=== PATIENT | female | born 1950 | race Caucasian/White ===

== ENCOUNTER → 2017-01-04 | Outpatient (CLI) | payer OTHER | END | disposition home or self-care (01) | LOC: GMAL 14:39 | PROVIDERS: ATTEND Family Medicine | DX: R10.32 Left lower quadrant pain (principal) ==

== ENCOUNTER → 2017-01-10 | Outpatient (CLI) | payer OTHER ==
--- NOTE | 2017-01-10 12:40 | US ---
EXAM DESCRIPTION: Abdomen,Limited CLINICAL HISTORY: LEFT LOWER QUAD PAIN COMPARISON: None Available. TECHNIQUE: Transcutaneous scanning: Two-dimensional and Doppler modes. FINDINGS: Scanning of the left inguinal area shows no fluid collection or solid mass. With Valsalva maneuver, no bowel or soft tissue herniation is noted into the inguinal canal. Left kidney measures 11.5 x 5.8 x 6.7 cm. Normal mid renal cortical thickness. Normal cortical echogenicity. 6 mm echogenic object in the inferior collecting system. No hydronephrosis or perirenal fluid. Proximal ureter not visualized. IMPRESSION: 1. No left inguinal hernia. 2. 6 mm radiodense stone in the inferior collecting system of the left kidney. Otherwise unremarkable. Electronically signed by: Adal Brown MD 01/10/2017 12:39 PM CDT
== END ==
LOC: US 08:24
PROVIDERS: ATTEND Family Medicine
DX: R10.32 Left lower quadrant pain (principal); N20.0 Calculus of kidney

== ENCOUNTER 2017-01-20 12:16 | Emergency (ER) | payer OTHER ==
[2017-01-20 13:31] VITALS: TEMP 97.9
--- NOTE | 2017-01-20 13:49 | ED.PDOC ---
History of Present Illness - General Chief Complaint: Lower Extremity Injury Stated Complaint: left hip and left knee pain Time Seen by Provider: 01/20/17 13:11 Source: patient, RN notes reviewed, Vital Signs reviewed Exam Limitations: no limitations - History of Present Illness Initial Comments: Patient comes in with c/o L hip and knee pain. She reports last night she slipped on some water on the kitchen floor causing her to do the splits. She then had difficulty getting up due to continually slipping on the water. She denies any pain on her R side but is sure she broke her knee cap due to the pain. She can't bend her knee without pain. No numbness or tingling. Able to ambulate but with pain. Occurred: yesterday Pain - Lower Extremity: moderate: Left Thigh/Hip, severe: Left Knee Method of Injury: fell Improving Factors: rest Worsening Factors: movement Allergies/Adverse Reactions: Allergies Penicillins Allergy (Unverified 05/27/12 05:35) Home Medications: Ambulatory Orders Hydrochlorothiazide 25 mg PO DAILY 03/25/16 Metoprolol Tartrate 50 mg PO DAILY 03/25/16 Naproxen [Naprosyn] 500 mg PO BID 03/25/16 Cinnamon 500 mg PO DAILY 01/20/17 Potassium Gluconate 2 each PO DAILY 01/20/17 Review of Systems - Review of Systems Constitutional: States: no symptoms reported Respiratory: States: no symptoms reported Cardiology: States: no symptoms reported Gastrointestinal/Abdominal: States: no symptoms reported Musculoskeletal: States: see HPI, joint pain - L hip and knee, joint swelling - Left knee, muscle pain - L leg Skin: States: no symptoms reported Neurological: States: no symptoms reported. Denies: numbness, paresthesia, tingling, weakness All other Systems: No Change from Baseline Past Medical History (General) - Patient Medical History Hx Cardiac Disorders: Yes Hx Congestive Heart Failure: No Hx Hypertension: Yes Hx Diabetes: No Hx Gastroesophageal Reflux: Yes Hx Cancer: No Hx Hepatitis C: No Surgical History: cholecystectomy, tonsillectomy, Hysterectomy - Vaccination History Hx Tetanus, Diphtheria Vaccination: Yes Hx Influenza Vaccination: No Hx Pneumococcal Vaccination: Yes - Social History Hx Tobacco Use: Yes - quit 30 yrs ago Hx Alcohol Use: No Hx Substance Use: No Hx Substance Use Treatment: No Hx Depression: No Hx Physical Abuse: No Hx Emotional Abuse: No Hx Suspected Abuse: No - Female History Patient : No Family Medical History - Family History Mother Hx Family Hypertension: Yes Physical Exam - Physical Exam General Appearance: Alert, Comfortable, No apparent distress, Well Developed, Well Groomed, Well Hydrated, Well Nourished Cardiovascular/Respiratory: normal peripheral pulses, no respiratory distress Thigh/Hip: normal inspection, non-tender, no evidence of injury, limited ROM - due to pain, soft tissue tenderness - Lateral thigh Leg: normal inspection, non-tender, no evidence of injury Knee: bone tenderness - L knee cap, joint effusion - L knee, limited ROM - L knee - unable to flex due to swelling and pain, pain, soft tissue tenderness, swelling Ankle: normal inspection, non-tender, no evidence of injury, normal ROM Foot: normal inspection, non-tender, no evidence of injury, normal ROM Neuro/Tendon: normal sensation, normal motor functions, normal tendon functions , no evidence tendon injury Mental Status: alert, oriented x 3 Skin: normal color, warm/dry Comments: Vital Signs 01/20/17 13:28 Temperature 97.9 F Pulse Rate [ 67 Right Brachial] Respiratory 20 Rate Blood Pressure 113/70 [Right Arm] O2 Sat by Pulse 96 Oximetry Progress - EKG/XRAY/CT XRAY: L knee: no fracture or dislocation - No fracture or dislocation Departure - Departure Clinical Impression: Sprain of hip Qualifiers: Encounter type: initial encounter Laterality: left Qualified Code(s): S73.102A - Unspecified sprain of left hip, initial encounter Sprain of knee Qualifiers: Encounter type: initial encounter Involved ligament of knee: unspecified ligament Laterality: left Qualified Code(s): S83.92XA - Sprain of unspecified site of left knee, initial encounter Time of Disposition: 14:13 Disposition: Discharge to Home or Self Care Condition: Good Departure Forms: ED Discharge - Pt. Copy, Patient Portal Self Enrollment Instructions: DI for Knee Sprain, DI for Groin Strain Diet: resume usual diet Activity: increase activity as tolerated Referrals: Sanjeev Jackson III, MD [Primary Care Provider] - 1-2 Weeks Home Medications: Ambulatory Orders Hydrochlorothiazide 25 mg PO DAILY 03/25/16 Metoprolol Tartrate 50 mg PO DAILY 03/25/16 Naproxen [Naprosyn] 500 mg PO BID 03/25/16 Cinnamon 500 mg PO DAILY 01/20/17 Potassium Gluconate 2 each PO DAILY 01/20/17
--- NOTE | 2017-01-20 14:03 | RAD ---
Examination: XR HIP 2 OR MORE VIEWS dated 01/20/2017 1:12 PM CDT History: fell last night Comparison: None Technique: Two views of the left hip FINDINGS AND IMPRESSION: Suboptimal visualization secondary to body habitus. Mild degenerative changes of the left hip without acute fracture or dislocation. Electronically signed by: Emile Grullon MD 01/20/2017 2:02 PM CDT
--- NOTE | 2017-01-20 14:05 | RAD ---
Examination: XR KNEE 4 OR MORE VIEWS dated 01/20/2017 1:12 PM CDT History: fell last night Comparison: None Technique: Three views of the left knee FINDINGS AND IMPRESSION: Moderate/advanced degenerative changes of the left knee with a small joint effusion. No acute fracture or dislocation. Chondrocalcinosis noted of the lateral compartment. Electronically signed by: Emile Grullon MD 01/20/2017 2:03 PM CDT
[2017-01-20 14:23] VITALS: BP 113/59; O2SAT 95
== END 2017-01-20 14:23 | disposition home or self-care (01) ==
LOC: ER 12:16
DX: S73.102A Unspecified sprain of left hip, initial encounter (principal); S83.92XA Sprain of unspecified site of left knee, initial encounter; I10 Essential (primary) hypertension; K21.9 Gastro-esophageal reflux disease without esophagitis; Z87.891 Personal history of nicotine dependence; Z88.0 Allergy status to penicillin; Z79.899 Other long term (current) drug therapy; W01.0XXA Fall on same level from slipping, tripping and stumbling without subsequent striking against object, initial encounter; Y92.89 Other specified places as the place of occurrence of the external cause

== ENCOUNTER → 2017-12-14 | Outpatient (CLI) | payer OTHER ==
--- NOTE | 2017-12-15 10:46 | MRI ---
EXAM DESCRIPTION: Pelvis w/o Contrast: MRI. CLINICAL HISTORY: M25.552. Pain in left hip. COMPARISON: Left hip radiographs 01/20/2017. TECHNIQUE: Multiplanar, high-field MRI, multiple sequences, without contrast: Pelvis and left hip. FINDINGS: Narrowing of the left hip joint space with lack of fluid compared to the right hip. Patchy hyperintense T2 and inversion recovery sequence in the superior left femoral head more anterior than posterior. Focal cup-shaped lesion on the anterior superior articular surface demonstrating a double margin (bright inner band and dark outer band)f which is hypoechoic on T1 and T2 sequences with central hyperintense and dark T2 signal. 1.5 cm transverse measurement. The cup shaped lesion is heterogeneously dark on T1 sequence. Second, cup-shaped lesion, with double margin, superior subchondral bone of the femoral head with same signal features, 1.3 cm transverse measurement. Mixed hyperintense T2/STIR signal and decreased T1 signal between these lesions superior subchondral femoral head, no definite margin. Question of minimal collapse at the vertex, with hypointense T2, STIR, and T1 signal. Hyperintense T2 and FLAIR signal more laterally on the femoral head to the lesions described above. Minimal decreased T1 signal with no definite margin. Would be equivalent to Moon (osteonecrosis radiograph classification) stage III disease. Minimal subchondral edema-like hyperintense T2 and inversion recovery signal in the anterior and posterior and medial facets and columns of the acetabulum. Minimal fluid is noted around the subcapital femoral neck in the inferior capsule. Normal marrow signal in the remaining included pelvic bones, and the right acetabulum, right femoral head and neck. Edema in the distal right gluteus muscles and tendons inserted on the right greater trochanter. IMPRESSION: 1. Osteonecrosis of the left femoral head with 2 focal lesions in the anterior mid sagittal subchondral bone and the superior mid sagittal subchondral bone. These focal lesions are surrounded by heterogeneous marrow edema involving most of the superior aspect of the femoral head and extending laterally. Cannot exclude a subchondral fracture. Small focal areas of fibrosis and suspected collapse near the vertex and lateral femoral head. Joint space loss. Would be equivalent to Moon (osteonecrosis radiographic classification) stage III disease. No marrow edema in the inferior left femoral head and femoral neck. Consider correlation with plain radiographs which are more sensitive to detect cortical collapse. 2. Strain of the distal right gluteus muscles and tendons at the insertion on the right greater trochanter. Electronically signed by: Adal Brown MD 12/15/2017 10:44 AM CDT
== END ==
LOC: MRI 10:45
PROVIDERS: ATTEND Nurse Practitioner Family
DX: M87.852 Other osteonecrosis, left femur (principal); S39.012A Strain of muscle, fascia and tendon of lower back, initial encounter; M25.552 Pain in left hip

== ENCOUNTER → 2017-12-24 | Outpatient (CLI) | payer OTHER | LOC: RESP 11:11 | PROVIDERS: ATTEND Orthopaedic Surgery | DX: Z01.818 Encounter for other preprocedural examination (principal) ==

== ENCOUNTER → 2018-01-08 | Outpatient (CLI) | payer OTHER | LOC: GMAL 10:37 | PROVIDERS: ATTEND Family Medicine | DX: R30.0 Dysuria (principal) ==

== ENCOUNTER → 2018-01-21 | Outpatient (CLI) | payer OTHER, MEDICARE ==
--- NOTE | 2018-01-22 07:44 | RAD ---
EXAM DESCRIPTION: Pelvis CLINICAL HISTORY: 67 years Female, AVASCULAR NECROSIS OF BONE OF HIP-LEFT COMPARISON: MRI December 14, 2017 , left hip radiograph January 20, 2017. FINDINGS: There is severe left and joint space narrowing with [id number] alignment. Subcortical sclerosis involves the left femoral head and acetabular roof. There is subtle flattening of the left femoral head contour superiorly consistent with provided history of avascular necrosis as seen on recent MRI. The right hip joint is relatively well maintained. Mild to moderate degenerative changes are noted at several levels in the lower lumbar spine including disc space narrowing and marginal osteophyte formation. No acute abnormality. IMPRESSION: Advanced degenerative changes in the left hip including severe joint space narrowing with [id number] alignment. AVN in the left femoral head better demonstrated on recent MRI results in subtle flattening of the left femoral head contour on today's exam. Left hip joint space narrowing today's exam is worse from January 20, 2017. Degenerative changes in lumbar spine. Electronically signed by: Aaron Marin MD 01/22/2018 7:42 AM CDT
== END ==
LOC: RAD 09:19
PROVIDERS: ATTEND Orthopaedic Surgery
DX: M87.852 Other osteonecrosis, left femur (principal)

== ENCOUNTER 2018-01-23 05:50 | Inpatient (IN) | payer OTHER, MEDICARE ==
--- NOTE | 2018-01-21 14:07 | HP ---
CHIEF COMPLAINT: Left hip pain. HISTORY OF PRESENT ILLNESS: Megan is a 67-year-old female with a history of pain in the left hip. She has had this pain going on and getting progressively worse for a very long time. She denies any history of trauma related to this, denies any radiation of pain, and denies any neurologic symptoms. Because of her failure of conservative measures and management of this pain, she has requested operative intervention. After discussing the risks, benefits and alternatives to total hip arthroplasty, she has given informed consent. PAST SURGICAL HISTORY: 1. Total knee arthroplasty. 2. Cholecystectomy. MEDICATIONS: 1. Metoprolol. 2. Hydrochlorothiazide. 3. Naprosyn. 4. Clonidine. 5. Lovastatin. ALLERGIES: PENICILLIN. CODE STATUS: Full code. IMMUNIZATIONS: Up to date. FAMILY HISTORY: None pertinent to today's complaint. SOCIAL HISTORY: The patient does not drink, smoke or use any illicit drugs. REVIEW OF SYSTEMS: Negative except as indicated in the History of Present Illness. PHYSICAL EXAMINATION: VITAL SIGNS: Blood pressure 162/98. Pulse 52. Height 5'2". Weight 218. MENTAL STATUS: The patient is awake, alert, and is able to give a good history and participate in the physical. The patient is oriented to person, place and time. SKIN: Normal tone and turgor. HEENT: Normocephalic, atraumatic. Pupils equal, round and reactive. Mucosal membranes are moist. NECK: Normal range of motion. No thyromegaly, no lymphadenopathy. CHEST: Normal respiratory excursion. CARDIAC: Regular rate and rhythm. No murmurs, rubs or gallops. MUSCULOSKELETAL: The bilateral upper extremities show full active range of motion without significant pain. She has intact sensation and they are warm and well perfused. There is no deformity. Strength is 5/5. The right lower extremity shows full range of motion of the hip. She has no pain with hip range of motion. She has intact sensation. It is warm and well perfused. She has greater than 100 degrees of flexion and internal rotation to about 30 degrees. External rotation is to 50 degrees. She has no pain with range of motion of the knee. She has a well-healed scar on the tibia from previous total knee replacement. The right hip shows severe pain with range of motion. She has 0 degrees of internal rotation and obligate external rotation. External rotation is limited to 20 degrees. Sensation is intact. It is warm and well perfused. She walks with an antalgic gait. IMAGING: The x-rays and MRI shows severe avascular necrosis with degenerative hip arthritis. ASSESSMENT: 1. Avascular necrosis. 2. Hip arthritis. PLAN: The plan at this point is for total hip arthroplasty. We have discussed the risks, benefits, and alternatives to that and the patient has given informed consent. #[id number] [facility]
[2018-01-23] MEDS ORDERED: LACTATED RINGERS 1,000 ML ONE (05:52)
[2018-01-23] MEDS ORDERED: SODIUM CHLORIDE 0.9% 250ML 250 ML ONE ×3 (05:53→19:45)
[2018-01-23] MEDS ORDERED: SODIUM CHLORIDE 0.9% 100ML 100 ML IVPB ONE (05:53)
[2018-01-23] MEDS ORDERED: TRANEXAMIC ACID 1,000 MG/10 ML VIAL ONE ×2 (05:53→05:54)
[2018-01-23] MEDS ORDERED: VANCOMYCIN HCL INJ 1,000 MG VIAL IVPB ONE ×3 (05:53→19:46)
[2018-01-23] MEDS ORDERED: ceFAZolin SODIUM 1 GM VIAL ONE (06:21)
[2018-01-23] MEDS ORDERED: MIDAZOLAM INJ 2 MG/2 ML VIAL ONE (06:32)
[2018-01-23] MEDS ORDERED: fentaNYL CITRATE INJ 50 MCG/ML AMP ONE (06:32)
[2018-01-23] MEDS ORDERED: ACETAMINOPHEN IV 1000MG 100 ML ONE (06:32)
[2018-01-23] MEDS ORDERED: MORPHINE SULF *EPIDURAL* 1 MG/ML VIAL ONE (06:32)
[2018-01-23] MEDS ORDERED: ROCURONIUM BROMIDE 10 MG/ML VIAL ONE (06:33)
[2018-01-23] MEDS ORDERED: traMADol HCL 50 MG TAB PO PRN (07:13)
[2018-01-23] MEDS ORDERED: ACETAMINOPHEN 500 MG TAB PO PRN (07:13)
[2018-01-23] MEDS ORDERED: ONDANSETRON INJ 4 MG/2 ML VIAL IV PRN (07:13)
[2018-01-23] MEDS ORDERED: PROMETHAZINE HCL INJ 12.5 MG in SODIUM CHLORIDE 0.9% 50ML 50 ML IVPB PRN (07:13)
[2018-01-23] MEDS ORDERED: CYCLOBENZAPRINE HCL 10 MG TAB PO PRN (07:13)
[2018-01-23] MEDS ORDERED: MORPHINE SULFATE INJ 10 MG/ML VIAL IM PRN (07:13)
[2018-01-23] MEDS ORDERED: DEX 5% W/NACL 0.45% 1000ML 1,000 ML IVS PRN (07:13)
[2018-01-23] MEDS ORDERED: PROMETHAZINE HCL INJ 25 MG in SODIUM CHLORIDE 0.9% 50ML 50 ML IVPB PRN (07:13)
[2018-01-23] MEDS ORDERED: TEMAZEPAM 15 MG CAP PO PRN (07:13)
[2018-01-23] MEDS ORDERED: SODIUM CHLORIDE 0.9% (FLUSH) 10 ML SYG IV PRN (07:13)
[2018-01-23] MEDS ORDERED: BISACODYL SUPPOSITORY 10 MG PR PRN (07:13)
[2018-01-23] MEDS ORDERED: NALOXONE HCL INJ 0.4 MG/ML VIAL IV PRN (07:13)
[2018-01-23] MEDS ORDERED: MORPHINE SULFATE INJ 10 MG/ML VIAL IV PRN (07:13)
[2018-01-23] MEDS ORDERED: MAGNESIUM HYDROXIDE 30 ML UD PO PRN (07:13)
[2018-01-23] MEDS ORDERED: BENZOCAINE-MENTH LOZ (CEPACOL) 1 EA LOZ MT PRN (07:13)
[2018-01-23] MEDS ORDERED: ZOLPIDEM TARTRATE 5 MG TAB PO PRN (07:13)
[2018-01-23] MEDS ORDERED: ALUMINUM & MAGNESIUM HYDROXIDE 30 ML UD PO PRN (07:13)
[2018-01-23] MEDS ORDERED: ACETAMINOPHEN 325 MG TAB PO PRN (07:13)
[2018-01-23] MEDS ORDERED: TRANEXAMIC ACID INJ 1,000 MG in SODIUM CHLORIDE 0.9% 100ML 100 ML IVPB ONE (07:13)
[2018-01-23] MEDS ORDERED: MORPHINE PCA 1 MG/ML 100 ML BAG IVPB SCH (07:30)
[2018-01-23] MEDS ORDERED: ceFAZolin SODIUM 1 GM VIAL IVPB ONE ×2 (07:30→10:00)
[2018-01-23] MEDS ORDERED: ELECTROLYTE-A 1,000 ML IVS ONE (08:20)
[2018-01-23] MEDS: ceFAZolin SODIUM 1 GM VIAL ONE ×2 (08:22→09:08)
[2018-01-23] MEDS: BUPIVACAINE 0.5% 30 ML VIAL INJ ONE ×2 (08:22→09:07)
[2018-01-23] MEDS: VANCOMYCIN HCL INJ 1,000 MG VIAL IVPB ONE ×2 (08:22→09:08)
[2018-01-23] MEDS: BUPIVACAINE LIPOSOME 13.3 MG/ML VIAL INJ ONE ×2 (08:23→09:07)
[2018-01-23] MEDS ORDERED: GLYCOPYRROLATE 0.2 MG/ML VIAL IV ONE (10:00)
[2018-01-23] MEDS ORDERED: HYDROCORTISONE SOD SUCC INJ 100 MG/2 ML VIAL IV ONE (10:00)
[2018-01-23] MEDS ORDERED: raNITIdine HCL INJ 25 MG/ML VIAL IV ONE (10:00)
[2018-01-23] MEDS ORDERED: LIDOCAINE 1% 10 ML VIAL INJ ONE (10:00)
[2018-01-23] MEDS ORDERED: METOCLOPRAMIDE HCL INJ 10 MG/2 ML VIAL IV ONE (10:00)
[2018-01-23] MEDS ORDERED: DEXAMETHASONE INJ 10 MG/ML VIAL IV ONE (10:00)
[2018-01-23] MEDS ORDERED: PROPOFOL 200 MG/20 ML VIAL IV ONE (10:00)
[2018-01-23] MEDS ORDERED: diphenhydrAMINE HCL 50 MG/ML VIAL IV ONE (10:00)
[2018-01-23] MEDS ORDERED: ePHEDrine SULF 50 MG/ML IV ONE (10:00)
[2018-01-23] MEDS: IV SET AND CAP CHANGE INJ INJ SCH (12:11)
[2018-01-23] MEDS: CELECOXIB 100 MG CAP PO SCH ×2 (12:11→17:23)
[2018-01-23] MEDS: MAGNESIUM OXIDE 400 MG TAB PO SCH (12:11)
[2018-01-23] MEDS ORDERED: SODIUM CHLORIDE 0.45% 1000ML 1,000 ML IVS PRN (15:46)
[2018-01-23] MEDS ORDERED: ceFAZolin SODIUM 2 GRAMS PREMI 50 ML IVPB ONE ×2 (16:23→19:46)
[2018-01-23] MEDS: ceFAZolin SODIUM 2 GRAMS PREMI 2 GM in PREMIX BAG 1 BAG IVPB SCH ×2 (16:27→23:42)
[2018-01-23] MEDS: VANCOMYCIN HCL INJ 1,000 MG in SODIUM CHLORIDE 0.9% 250ML 250 ML IVPB SCH (17:42)
[2018-01-23] MEDS ORDERED: NAPROXEN 250 MG TAB ONE (19:45)
[2018-01-23] MEDS ORDERED: ENOXAPARIN SODIUM 30 MG/0.3 ML SYG SUBCU ONE (19:46)
[2018-01-23] MEDS: METOPROLOL TARTRATE 50 MG TAB PO SCH (20:35)
[2018-01-23] MEDS: cloNIDine HCL 0.1 MG TAB PO SCH (20:35)
[2018-01-23] MEDS: NON-FORMULARY MEDICATION 1 EA MIS (Potassium [Potassium] 99 MG) PO SCH (20:36)
[2018-01-23] MEDS: NAPROXEN 500 MG PO SCH (20:36)
[2018-01-23] MEDS: DOCUSATE CALCIUM 240 MG CAP PO SCH (20:36)
[2018-01-23] MEDS ORDERED: LOVASTATIN PO SCH (21:00)
[2018-01-23] MEDS: ENOXAPARIN SODIUM 30 MG/0.3 ML SYG SUBCU SCH (23:22)
--- NOTE | 2018-01-23 23:40 | CONS ---
DATE OF CONSULTATION: 01/23/18 SUPERVISING PHYSICIAN: Natan Reed M.D. REASON FOR CONSULTATION: Total left hip arthroplasty. HISTORY OF PRESENT ILLNESS: Ms. Morales is a 67 year-old female that has a longstanding history of pain in her left hip. She noted that in the past she had slipped at some point and had problems with her left hip since that point. She had tried multiple attempts at conservative measures but management had failed to result in any significant pain control and it was interfering with her activities of daily living. She has now requested elective total left hip arthroplasty for symptom control. She was admitted today for a total left hip arthroplasty and seen in the immediate postoperative state. She had no intraoperative complications and was showing to be stable and alert. PAST MEDICAL HISTORY: 1. Coronary artery disease with a previous myocardial infarction in 2009. 2. Stress incontinence. 3. Osteoarthritis. 4. Obesity with a current body mass index of 39.2. 5. Hypertension. PAST SURGICAL HISTORY: 1. Hysterectomy in 1999. 2. Tonsils and adenoids. 3. Total right knee arthroplasty. 4. Laparoscopic cholecystectomy for acute cholecystitis. HOME MEDICATIONS: 1. Vitamin D3, 5,000 units daily. 2. Potassium 99 mg daily. 3. Gaye 10 mg daily. 4. Clonidine 0.05 mg b.i.d. 5. Vitamin B complex 1 tablet daily. 6. Lovastatin 1 tablet at bedtime. 7. Naprosyn 500 mg b.i.d. 8. Metoprolol tartrate 50 mg b.i.d. 9. Hydrochlorothiazide 25 mg daily. 10. Cinnamon 500 mg daily. ALLERGIES: PENICILLINS. FAMILY HISTORY: Father due to lung cancer. Mother has a history of hypertension and Alzheimer's disease. She has 1 brother who from a myocardial infarction at 50 years of age. One sister that is in good health. SOCIAL HISTORY: The patient is . They have 2 children. 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 She smokes approximately a pack a day, started at age 21 but quit in 1995. She only drinks alcohol on a social basis. Denies any illicit drug use. REVIEW OF SYSTEMS: CONSTITUTIONAL: Denies any fevers, chills, general malaise, unintentional weight gain or loss. HEENT: Denies any headaches, sore throat, nasal congestion, ear aches. RESPIRATORY: Denies any coughing, wheezing or shortness of breath. CARDIOVASCULAR: Denies any chest pain, palpitations, syncopal episodes, peripheral edema. GASTROINTESTINAL: Denies any nausea, vomiting, diarrhea or constipation. GENITOURINARY: Denies any dysuria, hematuria, polyuria or other urinary symptoms. MUSCULOSKELETAL: As noted in history of present illness. NEUROLOGIC: Denies any ataxia, seizure activity, syncopal episodes or other neurological focal deficits. LABORATORY: Blood sugar preoperatively was 117, postoperatively was 145. Postoperative H&H is pending. PHYSICAL EXAMINATION: ASSESSMENT: 1. Immediate postoperative day 0 for a total left hip arthroplasty having failed to respond to outpatient treatment measures requiring surgical intervention for pain control with surgery performed by Dr. Sridhar Olea. 2. History of hypertension. 3. History of coronary artery disease with a previous myocardial infarction in 2009. 4. History of osteoarthritis. 5. Obesity with a body mass index of 39. PLAN: The patient will be followed postoperatively and through her rehabilitation and physical therapy efforts. Pain management and other surgical issues deferred to Dr. Olea as well as Physical Therapy. Will resume her home medications as those have been updated and verified. She is on DVT prophylaxis as per protocol. Will anticipate her length of stay to be at least 2 to 3 days. Until stable and can continue with outpatient management, will continue monitor and treat appropriately. [facility][id number] [facility]
[2018-01-24] MEDS: VANCOMYCIN HCL INJ 1,000 MG in SODIUM CHLORIDE 0.9% 250ML 250 ML IVPB SCH (06:19)
--- NOTE | 2018-01-24 07:55 | RAD ---
EXAM: Hip,Left 2 Views (accession [id number]), Pelvis (accession [id number]) CLINICAL HISTORY: post op COMPARISON STUDY: January 21, 2018 pelvis x-ray TECHNICAL: AP pelvis and 2 images of the left hip FINDINGS: The left hip has been replaced. The prosthesis is seated and intact. There is no evidence of a fracture or hardware failure. The pelvic ring is intact. The right hip is unchanged. There are postoperative changes of the greater trochanter. The lesser trochanter lucency is likely artifact. IMPRESSION: 1. Left hip prosthesis is intact. 2. Lucency at the lesser trochanter is thought to be artifact. Electronically signed by: Chet Sawyer MD 01/24/2018 7:54 AM CDT
--- NOTE | 2018-01-24 07:55 | RAD ---
EXAM: Hip,Left 2 Views (accession [id number]), Pelvis (accession [id number]) CLINICAL HISTORY: post op COMPARISON STUDY: January 21, 2018 pelvis x-ray TECHNICAL: AP pelvis and 2 images of the left hip FINDINGS: The left hip has been replaced. The prosthesis is seated and intact. There is no evidence of a fracture or hardware failure. The pelvic ring is intact. The right hip is unchanged. There are postoperative changes of the greater trochanter. The lesser trochanter lucency is likely artifact. IMPRESSION: 1. Left hip prosthesis is intact. 2. Lucency at the lesser trochanter is thought to be artifact. Electronically signed by: Chet Sawyer MD 01/24/2018 7:54 AM CDT
[2018-01-24] MEDS: NON-FORMULARY MEDICATION 1 EA MIS (Potassium [Potassium] 99 MG) PO SCH ×2 (08:18→20:51)
[2018-01-24] MEDS ORDERED: METOPROLOL SUCCINATE XL 50 MG TAB ONE (08:18)
[2018-01-24] MEDS ORDERED: ceFAZolin SODIUM 2 GRAMS PREMI 50 ML IVPB ONE (08:19)
--- NOTE | 2018-01-24 08:35 | PN ---
DATE: 01/23/18 POSTOPERATIVE CHECK SUBJECTIVE: She is doing really well and has no pain. OBJECTIVE: Afebrile. Vital signs stable. Dressing is clean, dry and intact. ASSESSMENT: Status post total hip arthroplasty. PLAN: The plan at this point is for her to begin partial weightbearing on postoperative day 1. #[id number] MTDD
--- NOTE | 2018-01-24 08:36 | PN ---
DATE: 01/24/18 SUBJECTIVE: She is doing well and she only had to push her [employer] twice overnight. OBJECTIVE: Afebrile. Vital signs stable. Dressing is clean, dry and intact. ASSESSMENT: Status post total hip arthroplasty. PLAN: The plan at this point is to begin partial weightbearing today. [facility][id number] [facility]
[2018-01-24] MEDS: hydroCHLOROthiazide 25 MG TAB PO SCH (08:39)
[2018-01-24] MEDS: MAGNESIUM OXIDE 400 MG TAB PO SCH (08:39)
[2018-01-24] MEDS: ceFAZolin SODIUM 2 GRAMS PREMI 2 GM in PREMIX BAG 1 BAG IVPB SCH (08:39)
[2018-01-24] MEDS: cloNIDine HCL 0.1 MG TAB PO SCH ×2 (08:39→20:50)
[2018-01-24] MEDS: CELECOXIB 100 MG CAP PO SCH ×2 (08:40→17:00)
[2018-01-24] MEDS: LORATADINE 10 MG TAB PO SCH (08:41)
[2018-01-24] MEDS: HYDROcodone 5MG/APAP 325MG 1 EA TAB PO PRN ×3 (08:43→20:50)
[2018-01-24] MEDS: METOPROLOL TARTRATE 50 MG TAB PO SCH ×2 (08:46→20:51)
[2018-01-24] MEDS ORDERED: NAPROXEN 250 MG TAB PO SCH (09:15)
--- NOTE | 2018-01-24 09:45 | OP ---
DATE OF PROCEDURE: 01/23/18 PREOPERATIVE DIAGNOSIS: 1. Osteoarthritis of the left hip. POSTOPERATIVE DIAGNOSIS: 1. Osteoarthritis of the left hip. PROCEDURE: 1. Total hip arthroplasty. SURGEON: Sridhar Olea MD. DUST SAMPLER: Adal Harvey CST SA-Alberto. ANESTHESIA: General anesthesia. COMPLICATIONS: None. FINDINGS: Severe endstage osteoarthritis of the hip. INDICATION: Megan is a patient of ours that we have seen in the past for her hip pain. Megan unfortunately has been unable to get complete relief. Because of her ongoing pain, she has requested operative intervention. After discussing the risks, benefits and alternatives to that, the patient has given informed consent for total hip arthroplasty. PROCEDURE: The patient was brought to the Operating Room and placed in supine position. General anesthesia was induced and the patient was transitioned into the lateral decubitus position. The leg and hemipelvis were then sterilely prepped and draped. The hip was approached using a lateral incision centered over the greater trochanter. Standard anterolateral approach was used with elevation of the anterior one-third of the abductor musculature. A capsulotomy was performed and the hip was dislocated. Primary femoral neck cut was made. The acetabulum was exposed and the labrum and other intervening soft tissues were removed. Reaming was undertaken to a size 53 reamer to accommodate a size 54 cup. A trial cup was placed. Attention was then focused on the femur. The femoral canal was broached and subsequently reamed and broached. Following that , a size 9 broach was found to fit tight. A trial head was placed. The hip was reduced and taken through a range of motion. It was found to be stable without any evidence of pending dislocation or impingement. The hip was again dislocated and trial component was removed. The wound was thoroughly irrigated and the final component was impacted in place. Following that, the hip was reduced. It was again tested for stability and impingement. The leg length appeared to be correct. Therefore, the wound was very thoroughly irrigated. The abductor musculature was reapplied to the greater trochanter in anatomic position. Following that, the iliotibial band was closed along its length and the skin and subcutaneous tissues were closed with a combination of running and interrupted subcuticular stitches. Sterile dressings were placed. The patient was transitioned into the supine position and awoken from anesthesia. The patient was taken to the Recovery Room. POSTOPERATIVE PLAN: The patient will begin partial weightbearing on postoperative day 1. COMPONENTS: Higdon Secur-Fit stem size 9, Higdon Tritanium cup size 54 and 36 head. #[id number] MTDD
[2018-01-24] MEDS: NAPROXEN 500 MG PO SCH (09:50)
[2018-01-24] MEDS: CHOLECALCIFEROL 2,000 IU TAB PO SCH (10:04)
[2018-01-24] MEDS: B COMPLEX 1 EA TAB PO SCH (10:05)
[2018-01-24] MEDS: ENOXAPARIN SODIUM 30 MG/0.3 ML SYG SUBCU SCH ×2 (11:33→22:33)
[2018-01-24] MEDS: DOCUSATE CALCIUM 240 MG CAP PO SCH (20:50)
[2018-01-24] MEDS: SIMVASTATIN 10 MG TAB PO SCH (20:50)
[2018-01-25] MEDS: CELECOXIB 100 MG CAP PO SCH ×2 (07:44→16:14)
--- NOTE | 2018-01-25 08:35 | PN ---
SUPERVISING PHYSICIAN: Corby Reed MD DATE: 01/24/18 SUBJECTIVE: The patient is sitting up in her chair in her hospital room. She is eating her meal. She has no complaints of nausea, vomiting, diarrhea or constipation, chest pain or shortness of breath. She feels like her physical therapy went well and has no complaints of pain that is out of control. OBJECTIVE: VITAL SIGNS: Afebrile. Heart rate 89. Blood pressure 103/66. Respiratory rate 18. O2 saturation 92% on room air. RESPIRATORY: Essentially clear to auscultation bilaterally. CARDIAC: Regular rate and rhythm. GASTROINTESTINAL: Abdomen is soft, nondistended, nontender. Bowel sounds are positive. EXTREMITIES: Bilateral pedal pulses are palpable at +2. Her left hip lateral dressing is dry and intact. NEUROLOGIC: Awake, alert and oriented times three. LABORATORY: Hemoglobin 12.9, hemoglobin 38.5. Glucose has run between 117 and 145. All other labs and films have been reviewed via the EMR. ASSESSMENT: 1. Postoperative day 1 for a total left hip arthroplasty having failed to respond to outpatient treatment measures requiring surgical intervention for pain control with surgery performed by Dr. Sridhar Olea, orthopedic surgeon. 2. History of hypertension, stable. 3. History of coronary artery disease with a previous myocardial infarction in 2009. 4. History of osteoarthritis. 5. Obesity with a body mass index of 39. PLAN: We will continue present supportive care. Orthopedic issues will be per Dr. Sridhar Olea, orthopedic surgeon. She will continue with her physical therapy for strengthening and conditioning. Hopefully, she can be discharged on Sunday morning with her outpatient physical therapy at [facility] physical therapy department. I have encouraged good pulmonary hygiene. Until discharge, we will continue to monitor the patient closely and follow as needed. Dr. Reed is the collaborating physician and available for consultation. #[id number] [facility]
[2018-01-25] MEDS: LORATADINE 10 MG TAB PO SCH (08:51)
[2018-01-25] MEDS: MAGNESIUM OXIDE 400 MG TAB PO SCH (08:51)
[2018-01-25] MEDS: CHOLECALCIFEROL 2,000 IU TAB PO SCH (08:51)
[2018-01-25] MEDS: cloNIDine HCL 0.1 MG TAB PO SCH ×2 (08:51→20:37)
[2018-01-25] MEDS: hydroCHLOROthiazide 25 MG TAB PO SCH (08:52)
[2018-01-25] MEDS: METOPROLOL TARTRATE 50 MG TAB PO SCH ×2 (08:52→20:37)
[2018-01-25] MEDS: B COMPLEX 1 EA TAB PO SCH (08:56)
[2018-01-25] MEDS: NON-FORMULARY MEDICATION 1 EA MIS (Potassium [Potassium] 99 MG) PO SCH ×2 (08:56→20:37)
[2018-01-25] MEDS: SODIUM CHLORIDE 0.9% (FLUSH) 10 ML SYG IV SCH ×2 (08:57→20:37)
[2018-01-25] MEDS: ENOXAPARIN SODIUM 30 MG/0.3 ML SYG SUBCU SCH ×2 (10:19→22:34)
--- NOTE | 2018-01-25 16:15 | PN ---
DATE: 01/25/18 SUPERVISING PHYSICIAN: Natan Reed M.D. SUBJECTIVE: The patient is up walking in the hallways with Physical Therapy. Has no complaints of shortness of breath, nausea, vomiting, diarrhea, constipation or chest pain. OBJECTIVE: VITAL SIGNS: She is afebrile, heart rate 67, blood pressure 102/66, respiratory rate 18, O2 sat 98% on room air. RESPIRATORY: Essentially clear to auscultation bilaterally. CARDIAC: Regular rate and rhythm. EXTREMITIES: The dressing to her left lateral hip is dry and intact. There is no redness or edema noted around the bandaged area. NEUROLOGIC: She is awake, alert and oriented times three. LABORATORY: There are no labs and films to report at this time. ASSESSMENT: 1. Postoperative day #2 for a total left hip arthroplasty having failed to respond to outpatient treatment measures requiring surgical intervention for pain control with surgery performed by Dr. Sridhar Olea, orthopedic surgeon. 2. History of hypertension, stable. 3. History of coronary artery disease with a previous myocardial infarction in 2009. 4. History of osteoarthritis. 5. Obesity with a body mass index of 39. PLAN: We will continue present supportive care. Orthopedic issues will be per Dr. Sridhar Olea, orthopedic surgeon. Physical therapy will continue for strengthening and conditioning. I have encouraged good pulmonary hygiene and we will continue to monitor the patient closely and follow as needed. [facility][id number] [facility]
[2018-01-25] MEDS: DOCUSATE CALCIUM 240 MG CAP PO SCH (20:37)
[2018-01-25] MEDS: SIMVASTATIN 10 MG TAB PO SCH (20:37)
[2018-01-26] MEDS: cloNIDine HCL 0.1 MG TAB PO SCH (08:32)
[2018-01-26] MEDS: hydroCHLOROthiazide 25 MG TAB PO SCH (08:33)
[2018-01-26] MEDS: MAGNESIUM OXIDE 400 MG TAB PO SCH (08:33)
[2018-01-26] MEDS: METOPROLOL TARTRATE 50 MG TAB PO SCH (08:33)
[2018-01-26] MEDS: LORATADINE 10 MG TAB PO SCH (08:33)
[2018-01-26] MEDS: CELECOXIB 100 MG CAP PO SCH (08:33)
[2018-01-26] MEDS: B COMPLEX 1 EA TAB PO SCH (08:33)
[2018-01-26] MEDS: SODIUM CHLORIDE 0.9% (FLUSH) 10 ML SYG IV SCH (08:34)
[2018-01-26] MEDS: IV SET AND CAP CHANGE INJ INJ SCH (08:43)
[2018-01-26 10:14] VITALS: BP 103/69; TEMP 98.3; O2SAT 98
[2018-01-26] MEDS: NON-FORMULARY MEDICATION 1 EA MIS (Potassium [Potassium] 99 MG) PO SCH (10:20)
[2018-01-26] MEDS: ENOXAPARIN SODIUM 30 MG/0.3 ML SYG SUBCU SCH (10:20)
--- NOTE | 2018-01-26 16:23 | DS ---
SUPERVISING PHYSICIAN: Natan Reed MD DISCHARGE DIAGNOSES: 1. Postoperative day #3 for total left hip arthroplasty having failed to respond to outpatient treatment measures requiring surgical intervention for pain control with surgery performed by Dr. Sridhar Olea, orthopedic surgeon. 2. History of hypertension, stable. 3. History of coronary artery disease with a previous myocardial infarction in 2009. 4. History of osteoarthritis. 5. Obesity with a body mass index of 39. HISTORY OF PRESENT ILLNESS: This is a 67 year-old female patient who had an elective total hip arthroplasty on the date of admission by Dr. Sridhar Olea, orthopedic surgeon. She failed multiple attempts at conservative measures so she requested Dr. Sridhar Olea for surgical intervention. Intraoperatively she had no problems. Postoperatively she responded well to her physical therapy. Her vital signs remained stable. Her lab work was stable with her hemoglobin and hematocrit at 12.9 and 38.5. She has met her goals and is to be discharged home today in stable condition. DISCHARGE PLAN: The patient is to be discharged home today in stable condition. She is to continue her physical therapy with [facility] Physical Therapy department as an outpatient. She is to have a followup with Dr. Olea within the next one to two weeks. She is to hold off on any NSAIDS until after completion of her additional 32 days of Xarelto treatment. Otherwise, she is to resume her previous medications. She is to return to the hospital or call Dr. Olea's office for any problems or complications. It is also recommended she followup with her primary care physician, Dr. Jackson, in the next two weeks. I have also sent her home on Tylenol No. 3 for pain control as well as some cyclobenzaprine as well as 32 additional days of Xarelto. DISCHARGE MEDICATIONS: 1. Hydrochlorothiazide. 2. Naprosyn, not to be taken until after Xarelto therapy. 3. Metoprolol. 4. Cinnamon. 5. Potassium. 6. Lovastatin. 9. Loratadine. 9. Clonidine. 10. B Complex vitamins. 11. Vitamin D3. 12. Cyclobenzaprine. 13. Docusate sodium while on pain medication. 14. Xarelto. 15. Acetaminophen with codeine #3. [facility][id number] [facility]
[2018-01-26] MEDS ORDERED: BISACODYL SUPPOSITORY 10 MG PR ONE (21:00)
[2018-01-26] MEDS ORDERED: MAGNESIUM HYDROXIDE 30 ML UD PO ONE (21:00)
--- NOTE | 2018-01-27 13:20 | PN ---
DATE: 01/26/18 SUBJECTIVE: Ms. Morales subjective is doing really well. She is having pain that is minimum and controlled with p.o. medicine. OBJECTIVE: She is afebrile. Vital signs are stable. Wound is clean. There are no signs or symptoms of infection. ASSESSMENT: 1. Status post total hip arthroplasty. PLAN: The plan at this point is for discharge. Ms. Morales is doing well enough that she has her pain well controlled by p.o. medicine. She will followup on her scheduled appointment. #[id number] [facility]
== END 2018-01-26 12:30 | disposition home or self-care (01) | DRG 470 ==
LOC: AMB 05:50 → MS 11:10
PROVIDERS: ADMIT Orthopaedic Surgery; ATTEND Nurse Practitioner Acute Care
PROC: 0SR90JZ Replacement of Right Hip Joint with Synthetic Substitute, Open Approach (ICD-10-PCS; principal; 2018-01-23 07:07)
DX: M16.12 Unilateral primary osteoarthritis, left hip (principal); M87.9 Osteonecrosis, unspecified; I25.2 Old myocardial infarction; I25.10 Atherosclerotic heart disease of native coronary artery without angina pectoris; E66.9 Obesity, unspecified; R32 Unspecified urinary incontinence; I10 Essential (primary) hypertension; Z68.39 Body mass index [BMI] 39.0-39.9, adult; Z88.0 Allergy status to penicillin